=== PATIENT | female | born 1965 | race Caucasian/White ===

== ENCOUNTER → 2020-10-04 | Outpatient (CLI) | payer OTHER ==
--- NOTE | 2020-10-04 12:20 | Diagnostic Imaging Report ---
PROCEDURE: MRI left joint lower extremity without contrast. TECHNIQUE: Multiplanar, multisequence non contrast-enhanced MRI of the left lower extremity was accomplished. INDICATION: Knee pain. There are no prior studies available for comparison. FINDINGS: The proton dense fat sagittal series shows a broad band of increased signal extending obliquely through the midportion and posterior horn of the medial meniscus. This would be consistent with tear. The lateral meniscus appears to be intact. The anterior and posterior cruciate ligaments, the quadriceps and infrapatellar tendons, the collateral ligaments, biceps femoris tendon and the iliotibial band are intact. There is no sign of a tear either medial or lateral retinaculum. On the coronal proton dense series, there is a 2.4 x 9 mm area of diminished signal in the subarticular region of the midportion of the articular surface of the medial femoral condyle. There is generalized increased signal in this area on the STIR coronal series and I suspect this finding is secondary to osteochondritis dissecans. There is no other abnormal signal arising from the osseous structures to indicate bone edema or fracture. There is moderate degenerative disease of the articular surface of the medial femoral condyle and mild degenerative change involving the articular surface of the lateral femoral condyle and the patellofemoral space. There is also a moderate joint effusion present as well as mild edema/inflammation along the anterior aspect of the knee joint. IMPRESSION: 1. There is a broad tear of the posterior horn and midportion of the medial meniscus. 2. The lateral meniscus and the major ligaments and tendons are intact. 3. The area of altered signal in the subarticular region of the midportion of the medial femoral condyle does suggest osteonecrosis dissecans. There is no acute bony abnormality noted otherwise. 4. There is moderate joint effusion present and mild edema/inflammation along the anterior aspect of the knee joint. Dictated by: Dictated on workstation # [id number]
== END ==
LOC: RAD 11:00
PROVIDERS: ATTEND Orthopaedic Surgery Sports Medicine
DX: S83.242A Other tear of medial meniscus, current injury, left knee, initial encounter (principal); X58.XXXA Exposure to other specified factors, initial encounter
CPT/HCPCS: 73721

== ENCOUNTER → 2022-02-20 | Outpatient (CLI) | payer BC ==
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
== END ==
LOC: RAD 08:20
PROVIDERS: ATTEND Pediatrics
DX: M48.56XD Collapsed vertebra, not elsewhere classified, lumbar region, subsequent encounter for fracture with routine healing (principal); M47.816 Spondylosis without myelopathy or radiculopathy, lumbar region; M51.37 Other intervertebral disc degeneration, lumbosacral region
CPT/HCPCS: 72148

== ENCOUNTER → 2022-12-08 | Outpatient (CLI) | payer BC ==
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
== END ==
LOC: RAD 10:26
PROVIDERS: ATTEND Pediatrics
DX: M51.26 Other intervertebral disc displacement, lumbar region (principal); M47.816 Spondylosis without myelopathy or radiculopathy, lumbar region; M48.061 Spinal stenosis, lumbar region without neurogenic claudication; M24.28 Disorder of ligament, vertebrae; M43.17 Spondylolisthesis, lumbosacral region; G89.21 Chronic pain due to trauma
CPT/HCPCS: 72148

== ENCOUNTER 2023-01-26 09:54 | Day surgery (SDC) | payer BC, OTHER ==
[~2023-01-26] VITALS: Ht 165 cm; Wt 88.5 kg
[~2023-01-26 09:54] MED LIST: AMLO5TAB4 PO; BUPR1FIL53 SL; DULO30CA3 PO; GABA-491 PO; VALS40TA9 PO
[2023-01-26] MEDS ORDERED: LACTATED RINGERS 1,000 ML 1,000 ML IV STA (10:20)
[2023-01-26 10:46] VITALS: BP 138/63
--- NOTE | 2023-01-26 10:48 | Progress Note-Pre Operative ---
Pre-Operative Progress Note Date of Available H&P: Jan 13, 2023 Date H&P Reviewed: Jan 26, 2023 Time H&P Reviewed: 10:46 History & Physical: H&P Reviewed, Patient Examed, No changes noted Pre-Operative Diagnosis: +EDUARDO Fenton DO Jan 26, 2023 10:48
--- NOTE | 2023-01-26 12:11 | Progress Note-Post Operative ---
Post-Operative Progess Note Surgeon (s)/Clothespin Machine Operator (s) Surgeon EDUARDO BARRERA DO Clothespin Machine Operator: none Pre-Operative Diagnosis +Cologuard Post-Operative Diagnosis Diverticula Int hemorrhoids Procedure & Operative Findings Date of Procedure 01/26/23 Procedure Performed/Findings Colonscopy PROCEDURE NOTE: After informed consent was obtained, the patient was brought to the endoscopy suite, placed in bed in left lateral decubitus position. She was administered IV sedation by the SECURITIES TRADER who then monitored her vitals the entire time, heart rate, blood pressure and pulse ox and the scope was inserted, pushed all the way to about 150 cm and pushed into the cecum, took a picture of appendiceal orifice and noted the ileocecal valve. Then slowly withdrew the scope insufflating to look circumferentially at the arriaza starting in the cecum, up the ascending colon to the hepatic flexure, then down the transverse colon, splenic flexure, into the descending colon down in the sigmoid and then into the rectal vault and retroflexed the scope. Took a picture of the internal hemorrhoids. I had also taken a picture of the d iverticula on the way in. The patient tolerated the procedure. She was recovered in endoscopy suite. Recommended for repeat colonoscopy in 10 years. Anesthesia Type IV sedation by SECURITIES TRADER Estimated Blood Loss Estimated blood loss (mL): scant Specimens/Packing Specimens Removed none EDUARDO BARRERA DO Jan 26, 2023 12:11
[2023-01-26 12:12] VITALS: BP 115/65
--- NOTE | 2023-01-26 12:12 | Endoscopy Discharge Instruct ---
Endo Procedure/Findings Findings 1.: Diverticulosis 2.: Internal Hemorrhoids Discharge Instructions - Activity: You might feel a little sleepy until tomorrow. This is due to the medicine you received to relax you. Until tomorrow, you should: NOT drive a car, operate machinery or power tools. NOT drink any alcoholic beverages. NOT make any important decisions or sign importortant papers. Do not return to work until tomorrow, unless otherwise instructed. Resume previous activities tomorrow. Diet: Start by taking liquids. If you tolerate liquids, advance to solid food. 1.: Colonscopy in 10 years Notify Physician - If you experience excessive bleeding, unusual abdominal pain, fever, or chest pain, contact your doctor immediately. Follow-Up: Other Follow up in my office in one week EDUARDO BARRERA DO Jan 26, 2023 12:12
[2023-01-26 12:15] VITALS: BP 141/66
[2023-01-26 13:11] VITALS: BP 141/66
--- NOTE | 2023-01-26 13:45 | Anesthesia-General Post-Op ---
MAC Patient Condition Mental Status/LOC: Same as Preop Cardiovascular: Satisfactory Nausea/Vomiting: Absent Respiratory: Satisfactory Pain: Controlled Complications: Absent Post Op Complications Complications None Follow Up Care/Instructions Patient Instructions None needed. Anesthesiology Discharge Order Discharge Order Patient is doing well, no complaints, stable vital signs, no apparent adverse anesthesia problems. No complications reported per nursing. HOWIE JOHNSTON P[employer]BINE ROOM OPERATOR Jan 26, 2023 13:45
== END 2023-01-26 13:10 | disposition home or self-care (01) ==
LOC: ENDO 09:54
PROVIDERS: ATTEND Surgery
DX: R19.5 Other fecal abnormalities (principal); K59.09 Other constipation; K57.30 Diverticulosis of large intestine without perforation or abscess without bleeding; K64.8 Other hemorrhoids; E66.9 Obesity, unspecified; Z68.32 Body mass index [BMI] 32.0-32.9, adult; Z79.891 Long term (current) use of opiate analgesic; Z79.899 Other long term (current) drug therapy; Z80.0 Family history of malignant neoplasm of digestive organs